=== PATIENT | male | born 1970 | race Hispanic/Latino ===

== ENCOUNTER 2018-03-13 13:17 | Outpatient (CLI) | payer OTHER | END 2018-03-13 13:18 | disposition home or self-care (01) | LOC: DTY/OP 13:17 | PROVIDERS: ATTEND Surgery | DX: E66.01 Morbid (severe) obesity due to excess calories (principal) | CPT/HCPCS: 97802 ==

== ENCOUNTER 2018-05-18 11:04 | Outpatient (CLI) | payer OTHER | END 2018-05-18 11:05 | disposition home or self-care (01) | LOC: DTY/OP 11:04 | PROVIDERS: ATTEND Surgery | DX: E66.01 Morbid (severe) obesity due to excess calories (principal) | CPT/HCPCS: 97802 ==

== ENCOUNTER 2018-07-16 06:22 | Outpatient (CLI) | payer BC ==
[2018-07-16 16:54] LABS: #Eosinphils 0.2 thou/uL (0.0-0.7); #Lymphocytes 2.6 thou/uL (1.20-3.40); #Monocytes 0.7 thou/uL (0.11-0.59); %Basophils 0.2 % (0.0-1.0); %Eosinophils 1.8 % (0.0-10.0); %Lymphocytes 27.3 % (21.0-51.0); %Monocytes 7.8 % (0.0-10.0); Hemoglobin 16.9 g/dL (14.0-18.0); Mean Corpuscular HGB CONC 33.9 g/dL (32.0-36.0); Mean Corpuscular Hemoglobin 29.5 pg (27.0-31.0); Mean Corpuscular Volume 87.1 fL (78.0-98.0); Mean Platelet Volume 7.1 fL (7.4-10.4); Platelet Count 269 thou/uL (130-400); RBC Distribution Width 12.3 % (11.5-14.5); Red Blood Cell (RBC) Count 5.72 mill/uL (4.70-6.10); White Blood Cell (WBC) Count 9.6 thou/uL (4.8-10.8)
--- NOTE | 2018-07-16 17:06 | RAD ---
2 VIEWS CHEST: Date: 07/16/18 HISTORY: Preoperative exam. COMPARISON: None FINDINGS: Normal cardiac silhouette. Pulmonary vessels and hilum are normal. Costophrenic angles are clear. No consolidation or mass. No pneumothorax or osseous abnormalities. IMPRESSION: No acute cardiopulmonary process. POS: [facility]ON
[2018-07-16 17:14] LABS: ALT (SGPT) 26 U/L (8-55); AST (SGOT) 22 U/L (5-34); Albumin 4.5 g/dL (3.5-5.0); Alkaline Phosphatase 75 U/L (40-150); Anion Gap 12 mmol/L (10-20); BUN (Urea Nitrogen) 23 mg/dL (8.9-20.6); Bilirubin, Direct 0.4 mg/dL (0.1-0.3); Calc. Creatinine Clearance 0 mL/min (70-130); Calcium 9.6 mg/dL (7.8-10.44); Carbon Dioxide 24 mmol/L (22-29); Chloride 104 mmol/L (98-107); Estimated GFR-MDRD 66; Globulin 3.3 g/dL (2.4-3.5); Glucose 77 mg/dL (70-105); Potassium 4.2 mmol/L (3.5-5.1); Protein, Total 7.8 g/dL (6.0-8.3); Sodium 136 mmol/L (136-145)
== END 2018-07-16 06:23 | disposition home or self-care (01) ==
LOC: LABBT 06:22
PROVIDERS: ATTEND Surgery
DX: Z01.818 Encounter for other preprocedural examination (principal); E66.01 Morbid (severe) obesity due to excess calories
CPT/HCPCS: 71046; 80053; 80076; 83036; 85025; 93005; 93010

== ENCOUNTER 2018-07-16 16:00 | Inpatient (IN) | payer BC ==
[2018-07-16 16:23] VITALS: BMI 37.6
[2018-07-20] MEDS ORDERED: Heparin 5,000 UNITS/ML VIAL ONE (11:40)
[2018-07-20] MEDS ORDERED: Fentanyl 250 MCG/5 ML VIAL ONE (12:57)
[2018-07-20] MEDS ORDERED: Lidocaine 2% Jelly 5 ML TUBE ONE (12:57)
[2018-07-20] MEDS ORDERED: Midazolam HCl 2 mg/2 ml Vial ONE (12:57)
[2018-07-20] MEDS ORDERED: Bupivacaine HCl 0.5%/Epinephrine 1:200,000/PF 30 ml Vial ONE (13:07)
[2018-07-20] MEDS ORDERED: Promethazine HCl 25 MG/ML VIAL IM PRN ×3 (13:58→16:48)
[2018-07-20] MEDS ORDERED: Ondansetron HCl/PF 4 MG/2 ML Vial IVP PRN (13:58)
[2018-07-20] MEDS ORDERED: Promethazine HCl 25 MG/ML VIAL SLOW IVP PRN (13:58)
[2018-07-20] MEDS ORDERED: Fentanyl 100 MCG/2 ML VIAL ONE ×2 (14:38→14:54)
[2018-07-20] MEDS ORDERED: diphenhydrAMINE 50 MG/ML VIAL IVP PRN ×2 (15:28→16:48)
[2018-07-20] MEDS ORDERED: fentaNYL Citrate/PF 2,000 MCG in Sodium Chloride 0.9% 60 ML IV PRN (15:28)
[2018-07-20] MEDS ORDERED: Ondansetron PF 4 MG/2 ML Vial IVP PRN ×2 (15:28→16:48)
[2018-07-20] MEDS ORDERED: Naloxone HCl 0.4 mg/ml Vial IV PRN (15:28)
[2018-07-20] MEDS ORDERED: diphenhydrAMINE 25 MG CAP PO PRN (15:28)
[2018-07-20] MEDS ORDERED: diphenhydrAMINE 50 MG/ML VIAL IM PRN (15:28)
[2018-07-20] MEDS ORDERED: Zolpidem Tartrate 5 MG TAB PO PRN (15:28)
[2018-07-20] MEDS ORDERED: Communication Order-Pharmacy FS SCH (15:30)
[2018-07-20] MEDS ORDERED: Lidocaine 1% PF 5 ML VIAL ONE (15:50)
[2018-07-20] MEDS ORDERED: Glycopyrrolate 0.2 MG/ML 5 ML SYRINGE ONE (15:50)
[2018-07-20] MEDS ORDERED: ePHEDrine 50 MG/ML VIAL ONE (15:50)
[2018-07-20] MEDS ORDERED: Dexamethasone 20 MG/5 ML VIAL ONE (15:50)
[2018-07-20] MEDS ORDERED: Rocuronium Bromide 10 MG/ML (10ML VIAL) ONE (15:50)
[2018-07-20] MEDS ORDERED: Ondansetron PF 4 MG/2 ML Vial ONE (15:50)
[2018-07-20] MEDS ORDERED: PROPOFOL 200 MG/20 ML VIAL ONE (15:50)
[2018-07-20] MEDS ORDERED: hydrALAZINE 20 MG/ML VIAL SLOW IVP PRN (16:48)
[2018-07-20] MEDS ORDERED: Dextrose 5% in Water 1,000 ML IV PRN (16:48)
[2018-07-20] MEDS ORDERED: Hydrocodone-Acetamin 15 ML UDCUP PO PRN (16:48)
[2018-07-20] MEDS ORDERED: Dextrose 50% Abboject 50 ML SYRINGE SLOW IVP PRN (16:48)
[2018-07-20] MEDS ORDERED: Sodium Chloride 0.9% (PF) 10 ML VIAL FS PRN (17:15)
--- NOTE | 2018-07-20 17:22 | OP ---
DATE OF PROCEDURE: 07/20/2018 PREOPERATIVE DIAGNOSES: 1. Morbid obesity, BMI of 40. 2. Hypertension. POSTOPERATIVE DIAGNOSES: 1. Morbid obesity, BMI of 40. 2. Hypertension. PROCEDURES PERFORMED: 1. Laparoscopic sleeve with [place] staple line reinforcements and 38-[place] bougie. 2. Esophagogastroduodenoscopy. ANESTHESIA: General. ESTIMATED BLOOD LOSS: Minimal. COMPLICATIONS: None. SPECIMEN: Stomach. FINDINGS: Normal postoperative EGD. DESCRIPTION OF PROCEDURE: The patient was taken to the operating room and laid supine on the operating room table. After general anesthetic was obtained, the abdomen was prepped and draped in a sterile fashion. OG tube was used to decompress the stomach. Arms and legs were double strapped to the bariatric table. Left subcostal 5-mm Optiview trocar was placed in usual fashion and then high-flow pneumoperitoneum obtained. Left and right abdominal 12-mm ports as well as a right subcostal 5 mm port were placed under direct visualization. A 5 mm incision was made at the xiphoid and Tamara was used to raise the liver off the GE junction. Short gastrics were taken down from mid body of stomach to the left margaret of diaphragm. Left margaret, fundus of the stomach, and angle of His were completely dissected using LigaSure. OG tube was removed and 38-bougie was brought in and its tip left in the antrum of the stomach. Multiple loads of the Gardiner stapling device used to perform the sleeve. The first was fired up at a distance of 6 cm proximal to the pylorus angled up towards the incisura. Multiple loads were then fired up along the bougie. Stomach was completely transected at the angle of His. Stomach was removed from the left abdominal incision and this fascial defect was closed using GraNee needle and 0 Vicryl tie. All port sites were infiltrated using local anesthetic. EGD scope was passed through esophagus and stomach to the level of duodenum without obstruction. There was no stricture at the incisura. There was no evidence of air leakage or bleeding on the staple line. EGD scope was used to decompress the stomach. It was pulled and removed. All ports were removed under direct visualization without bleeding. Pneumoperitoneum was let down. The Vicryl was used to close the fascial defect from the left abdominal incisions. All incisions were irrigated and closed using 4-0 Monocryl and Dermabond. The patient was sent to Recovery in stable condition. All instrument counts, needle counts, and lap counts were correct. Job ID: [id number]
[2018-07-20] MEDS: D5 1/2 NS w/20 mEq KCL 1,000 ML IV SCH (18:16)
[2018-07-20] MEDS: Acetaminophen 1,000 MG in Premix Bag 1 BAG IVPB SCH ×2 (18:17→22:13)
[2018-07-20] MEDS ORDERED: Enoxaparin Sodium 40 MG/0.4 ML SYRINGE SC SCH (21:00)
[2018-07-21] MEDS: D5 1/2 NS w/20 mEq KCL 1,000 ML IV SCH ×2 (01:01→08:06)
[2018-07-21] MEDS: Acetaminophen 1,000 MG in Premix Bag 1 BAG IVPB SCH (04:17)
[2018-07-21 04:48] LABS: #Monocytes 0.4 thou/uL (0.11-0.59); %Lymphocytes 9.2 % (21.0-51.0); %Monocytes 3.5 % (0.0-10.0); %Neutrophils 87.2 % (42.0-75.0); Hemoglobin 15.7 g/dL (14.0-18.0); Mean Corpuscular HGB CONC 34.2 g/dL (32.0-36.0); Mean Corpuscular Hemoglobin 29.7 pg (27.0-31.0); Mean Corpuscular Volume 86.9 fL (78.0-98.0); Mean Platelet Volume 6.9 fL (7.4-10.4); Platelet Count 249 thou/uL (130-400); RBC Distribution Width 11.9 % (11.5-14.5); Red Blood Cell (RBC) Count 5.29 mill/uL (4.70-6.10); White Blood Cell (WBC) Count 10.3 thou/uL (4.8-10.8)
[2018-07-21 05:09] LABS: Anion Gap 13 mmol/L (10-20); BUN (Urea Nitrogen) 14 mg/dL (8.9-20.6); Calc. Creatinine Clearance 172 mL/min (70-130); Calcium 9.2 mg/dL (7.8-10.44); Carbon Dioxide 22 mmol/L (22-29); Chloride 102 mmol/L (98-107); Estimated GFR-MDRD 80; Glucose 141 mg/dL (70-105); Potassium 4.5 mmol/L (3.5-5.1); Sodium 132 mmol/L (136-145)
[2018-07-21 08:07] VITALS: BP 149/95
[2018-07-21 08:16] VITALS: TEMP 97.5
--- NOTE | 2018-07-21 08:52 | DIS ---
DATE OF ADMISSION: 07/20/2018 DATE OF DISCHARGE: 07/21/2018 ADMIT DIAGNOSES: Morbid obesity and hypertension. DISCHARGE DIAGNOSES: Morbid obesity and hypertension. PROCEDURE: Laparoscopic sleeve gastrectomy by Dr. Aviles without complication. CONDITION ON DISCHARGE: Stable. FACULTY: Dr. Aviles. HOSPITAL COURSE: On postop day #1 sleeve, the patient is doing well, tolerating liquids without difficulty. He is ambulatory. No significant pain. He was discharged to home. He will follow up with me in 2 weeks. Prescriptions already sent to his pharmacy. Job ID: [id number]
[2018-07-21] MEDS ORDERED: Pantoprazole 40 MG VIAL IVP SCH (09:00)
[2018-07-21] MEDS ORDERED: Lisinopril 20 MG TAB PO SCH (09:00)
[2018-07-21] MEDS ORDERED: Amlodipine 5 MG TAB PO SCH (09:00)
== END 2018-07-21 11:10 | disposition home or self-care (01) | DRG 621 ==
LOC: SURG A 07-20 10:16 → SJJU 07-20 15:43
PROVIDERS: ADMIT Surgery; ATTEND Surgery
PROC: 0DB64Z3 Excision of Stomach, Percutaneous Endoscopic Approach, Vertical (ICD-10-PCS; principal; 2018-07-20)
PROC: 0DJ08ZZ Inspection of Upper Intestinal Tract, Via Natural or Artificial Opening Endoscopic (ICD-10-PCS; 2018-07-20)
DX: E66.01 Morbid (severe) obesity due to excess calories (principal); Z68.41 Body mass index [BMI] 40.0-44.9, adult; I10 Essential (primary) hypertension
CPT/HCPCS: 36415; 80048; 85025; 88307; 88312; 94760; C9113; J0131; J0670; J1100; J1644; J1650; J2001; J2250; J2405; J2704; J3010; J3490; J7050